=== PATIENT | female | born 1940 | race Two or more races ===

== ENCOUNTER 2018-03-14 23:18 | Emergency (ER) | payer OTHER ==
[~2018-03-14] VITALS: Ht 157.5 cm; Wt 59.0 kg
[~2018-03-14 23:18] MED LIST: ASPIR 8181 MG; CARDIZEM120 MG; COZAAR100 MG; DELTASONE20 MG; DULERA 100 MCG/13 GM; IBUPROFEN400 MG; SPIRIVA; SYMBICORT 16010.2 GM; TUDORZA PRESS400 MCG; WAL TUSSIN DM; [UNRECOGNIZED DRUG - OTHER]
[2018-03-14] MEDS ORDERED: DULERA 100 MCG/13 GM (23:31)
[2018-03-14] MEDS ORDERED: SPIRIVA RESPIMAT4 G1 (23:32)
[2018-03-14] MEDS ORDERED: LEVALBUTER0.63 MG/3 (23:32)
[2018-03-15] MEDS ORDERED: DOLOGESIC 500-1 EACH PO (04:47)
== END 2018-03-15 04:56 | disposition home or self-care (01) ==
LOC: ER 23:18
DX: J44.9 Chronic obstructive pulmonary disease, unspecified (principal); R06.02 Shortness of breath

== ENCOUNTER 2018-07-14 18:41 | Emergency (ER) | payer OTHER ==
[~2018-07-14] VITALS: Ht 160 cm; Wt 61.2 kg
[~2018-07-14 18:41] MED LIST changes: +DOLOGESIC 500-1 EACH PO; +LEVALBUTER0.63 MG/3; +SPIRIVA RESPIMAT4 G1
== END 2018-07-14 22:38 | disposition home or self-care (01) ==
LOC: ER 18:41
DX: J44.9 Chronic obstructive pulmonary disease, unspecified (principal)

== ENCOUNTER 2018-07-15 15:55 | Inpatient (IN) | payer OTHER ==
[~2018-07-15] VITALS: Ht 157.5 cm; Wt 54.4 kg
== END 2018-07-25 16:56 | disposition home or self-care (01) | DRG 191 ==
LOC: ER 15:55 → MEDI 19:29 → MEDJ 07-17 20:56
PROC: 3E0F7GC Introduction of Other Therapeutic Substance into Respiratory Tract, Via Natural or Artificial Opening (ICD-10-PCS; principal; 2018-07-15)
PROC: 4A033R1 Measurement of Arterial Saturation, Peripheral, Percutaneous Approach (ICD-10-PCS; 2018-07-15)
PROC: 8E0ZXY6 Isolation (ICD-10-PCS; 2018-07-17)
DX: J44.1 Chronic obstructive pulmonary disease with (acute) exacerbation (principal); B37.0 Candidal stomatitis; J20.9 Acute bronchitis, unspecified; J44.0 Chronic obstructive pulmonary disease with (acute) lower respiratory infection; R09.02 Hypoxemia; B96.0 Mycoplasma pneumoniae [M. pneumoniae] as the cause of diseases classified elsewhere

== ENCOUNTER 2018-08-27 11:20 | Emergency (ER) | payer OTHER ==
[~2018-08-27] VITALS: Ht 165.1 cm; Wt 56.7 kg
== END 2018-08-27 22:00 | disposition home or self-care (01) ==
LOC: ER 11:20
DX: J44.9 Chronic obstructive pulmonary disease, unspecified (principal); B34.9 Viral infection, unspecified

== ENCOUNTER 2018-10-31 07:49 | Outpatient (CLI) | payer OTHER | END 2018-10-31 17:00 | disposition home or self-care (01) | LOC: TOM 07:49 | DX: J44.9 Chronic obstructive pulmonary disease, unspecified (principal); I10 Essential (primary) hypertension; R10.9 Unspecified abdominal pain ==

== ENCOUNTER 2019-07-18 15:29 | Emergency (ER) | payer OTHER ==
[~2019-07-18] VITALS: Ht 157.5 cm; Wt 54.4 kg
== END 2019-07-18 16:46 | disposition home or self-care (01) ==
LOC: ER 15:29
DX: J45.998 Other asthma (principal); R06.02 Shortness of breath

== ENCOUNTER 2019-11-30 21:23 | Emergency (ER) | payer OTHER ==
[~2019-11-30] VITALS: Ht 160 cm; Wt 54.4 kg
[2019-11-30] MEDS ORDERED: ATACAND HCT 161 EACH PO (21:43)
== END 2019-11-30 23:38 | disposition home or self-care (01) ==
LOC: ER 21:23
DX: J44.9 Chronic obstructive pulmonary disease, unspecified (principal); M79.18 Myalgia, other site; R42 Dizziness and giddiness

== ENCOUNTER → 2020-10-30 | Emergency (ER) | payer OTHER ==
[~2020-10-30] VITALS: Ht 165.1 cm; Wt 56.7 kg
[~2020-10-30] MED LIST changes: +ATACAND HCT 161 EACH PO; +FAMCICLOVIR500 MG PO; +KETO10TA2 PO
== END | disposition home or self-care (01) ==
LOC: ER 18:28
DX: B02.9 Zoster without complications (principal)

== ENCOUNTER 2021-01-01 00:15 | Emergency (ER) | payer OTHER ==
[~2021-01-01] VITALS: Ht 157.5 cm; Wt 56.7 kg
[2021-01-01] MEDS ORDERED: LOSARTAN POTASS25 MG (00:34)
[2021-01-01] MEDS ORDERED: XOPENEX HFA15 GM (00:35)
[2021-01-01] MEDS ORDERED: ZYNCOF 20-400120 ML PO (05:08)
== END 2021-01-01 05:21 | disposition home or self-care (01) ==
LOC: ER 00:15
DX: J45.998 Other asthma (principal)

== ENCOUNTER 2021-02-25 17:49 | Emergency (ER) | payer OTHER ==
[~2021-02-25] VITALS: Ht 157.5 cm; Wt 56.7 kg
[~2021-02-25 17:49] MED LIST changes: +LOSARTAN POTASS25 MG; +XOPENEX HFA15 GM; +ZYNCOF 20-400120 ML PO
[2021-02-25] MEDS ORDERED: DULERA 100 MCG/13 GM IH (18:06)
[2021-02-25] MEDS ORDERED: LOSARTAN-HCTZ1 EACH PO (18:07)
[2021-02-25] MEDS ORDERED: TUSICOF LIQUID120 ML PO (18:08)
[2021-02-25] MEDS ORDERED: ZITHROMAX500 MG PO (21:36)
[2021-02-25] MEDS ORDERED: PREDNISONE20 M1 PO (21:36)
[2021-02-25] MEDS ORDERED: AMBIEN5 MG PO (22:16)
== END 2021-02-25 22:27 | disposition home or self-care (01) ==
LOC: ER 17:49
DX: J45.998 Other asthma (principal)

== ENCOUNTER 2021-06-08 22:30 | Emergency (ER) | payer OTHER ==
[~2021-06-08] VITALS: Ht 157.5 cm; Wt 56.7 kg
[~2021-06-08 22:30] MED LIST changes: +AMBIEN5 MG PO; +DULERA 100 MCG/13 GM IH; +LOSARTAN-HCTZ1 EACH PO; +PREDNISONE20 M1 PO; +TUSICOF LIQUID120 ML PO; +ZITHROMAX500 MG PO
[2021-06-09] MEDS ORDERED: TUSSIN DM CLEA118 M1 PO (08:46)
[2021-06-09] MEDS ORDERED: TESSALON PERLE100 M1 PO (08:46)
== END 2021-06-09 08:52 ==
LOC: ER 22:30
DX: J45.902 Unspecified asthma with status asthmaticus (principal); R05 Cough

== ENCOUNTER 2021-08-02 17:35 | Emergency (ER) | payer OTHER ==
[~2021-08-02] VITALS: Ht 157.5 cm; Wt 54.4 kg
[~2021-08-02 17:35] MED LIST changes: +TESSALON PERLE100 M1 PO; +TUSSIN DM CLEA118 M1 PO
[2021-08-02] MEDS ORDERED: MUCINEX DM ER1 EAC1 PO (20:05)
[2021-08-02] MEDS ORDERED: ZYRTEC10 MG PO (20:05)
[2021-08-02] MEDS ORDERED: MOXIFLOXACIN H400 MG PO (20:05)
[2021-08-02] MEDS ORDERED: [UNRECOGNIZED DRUG - OTHER] IH (20:05)
[2021-08-02] MEDS ORDERED: MEDROLPACK PO (20:05)
== END 2021-08-02 20:53 | disposition home or self-care (01) ==
LOC: ER 17:35
DX: J40 Bronchitis, not specified as acute or chronic (principal); J06.9 Acute upper respiratory infection, unspecified; Z03.818 Encounter for observation for suspected exposure to other biological agents ruled out

== ENCOUNTER 2021-10-15 15:54 | Emergency (ER) | payer OTHER ==
[~2021-10-15] VITALS: Ht 157.5 cm; Wt 49.9 kg
[~2021-10-15 15:54] MED LIST changes: +MEDROLPACK PO; +MOXIFLOXACIN H400 MG PO; +MUCINEX DM ER1 EAC1 PO; +ZYRTEC10 MG PO; +[UNRECOGNIZED DRUG - OTHER] IH
[2021-10-15] MEDS ORDERED: ALLERGY RELIE15.8 ML (16:19)
[2021-10-15] MEDS ORDERED: DULERA 100 MCG/13 GM (16:20)
== END 2021-10-15 19:58 | disposition home or self-care (01) ==
LOC: ER 15:54
DX: J44.1 Chronic obstructive pulmonary disease with (acute) exacerbation (principal); Z03.818 Encounter for observation for suspected exposure to other biological agents ruled out; R06.02 Shortness of breath

== ENCOUNTER 2025-05-16 20:07 | Emergency (ER) | payer OTHER ==
[~2025-05-16] VITALS: Ht 160 cm; Wt 49.9 kg
[~2025-05-16 20:07] MED LIST changes: +ALLERGY RELIE15.8 ML
[2025-05-16] MEDS ORDERED: METHYLPREDNISOLONE SOD SUCC 125 MG VIAL ONE (20:51)
[2025-05-16] MEDS ORDERED: WATER FOR INJ.,BACTERIOSTATIC 30 ML VIAL IJ ONE (20:53)
[2025-05-16] MEDS ORDERED: METHYLPREDNISOLONE SOD SUCC 125 MG VIAL IV ONE (21:00)
[2025-05-16] MEDS ORDERED: LEVALBUTEROL HCL 1.25 MG/3 ML SOLUTION IH SCH (21:00)
[2025-05-16] MEDS ORDERED: LEVALBUTEROL HCL 0.63 MG/3 ML SOLUTION IH ONE (21:26)
[2025-05-16 21:43] LABS: BASO % 0.9 % (0.1-1.2); EOS # 0.52 (0.04-0.54); EOS % 5.3 % (0.7-7.0); LYMPH # 1.42 (1.18-3.74); LYMPH % 14.5 % (19.3-53.1); MEAN PLATELET VOLUME 11.40 fl (9.4-12.4); MONO # 0.65 (0.24-0.82); MONO % 6.7 % (4.7-12.5); NEUT # 7.07 (1.56-6.13); NEUT % 72.4 % (34.0-71.1); RED CELL DISTRIBUTION WIDTH 13.4 % (11.6-14.4)
[2025-05-16 22:13] LABS: ALT/SGPT 13.0 U/L (12-78); AST/SGOT 17.0 U/L (15-37); BILIRUBIN TOTAL 0.36 mg/dL (0.3-1.2); BUN CREA RATIO 16.0 (7.0-25.0); CREATININE SERUM 1.11 mg/dL (0.55-1.02); GFR 46.72; GLOBULINA 3.9 G/DL (2.4-3.5); GLUCOSE FASTING 89.0 mg/dL (65-100); OSMOLALITY SERUM 286.0 MOSM/KG (275-295)
[2025-05-16 22:25] LABS: COVID-19 AG NEGATIVE (NEGATIVE)
[2025-05-16 22:29] LABS: ABG PH 7.370 (7.35-7.45); ABG PO2 64.7 mmHg (80-100); BICARBONATE 26.8 mmol/l (23-25)
[2025-05-16 22:30] LABS: o2 21 %
[2025-05-16] MEDS ORDERED: XOPENEX CO1.25 MG/0. IH (23:31)
== END 2025-05-16 23:45 | disposition home or self-care (01) ==
LOC: ER 20:07
PROVIDERS: General Practice
DX: J44.1 Chronic obstructive pulmonary disease with (acute) exacerbation (principal); Z91.041 Radiographic dye allergy status; I10 Essential (primary) hypertension; Z20.822 Contact with and (suspected) exposure to COVID-19